=== PATIENT | female | born 1975 | race Caucasian/White ===

== ENCOUNTER → 2020-04-09 | Outpatient (CLI) | payer OTHER ==
[2020-04-09 12:11] LABS: HCT 43.8 % (34.0-46.0); HGB 14.5 gm/dL (11.4-16.0); MCH 31.7 pg (25.0-35.0); MCHC 33.1 g/dL (31.0-37.0); MCV 95.9 fL (80.0-100.0); Mean Platelet Volume 6.2; Platelet Count 269 k/uL (150-450); RBC 4.56 m/uL (3.80-5.40); RDW 11.8 % (11.5-15.5)
[2020-04-09 20:43] LABS: African American GFR (CKD) 103.2 (60.0-200.0); Albumin 4.7 g/dL (3.80-4.90); Albumin/Globulin Ratio 2.61 (1.60-3.17); Anion Gap 9.3 mmol/L (4.00-12.00); BUN/Creat Ratio 17.5 Ratio (12.00-20.00); Calcium 9.8 mg/dL (8.7-10.3); Carbon Dioxide 27.7 mmol/L (21.6-31.8); Chol/HDL Ratio 3.26; Globulin 1.8 g/dL (1.6-3.3); Potassium 4.4 mmol/L (3.5-5.5); Total Bilirubin 1.4 mg/dL (0.3-1.2); Total Protein 6.5 g/dL (6.2-8.2)
== END | disposition home or self-care (01) ==
LOC: LABWHC1 10:53
PROVIDERS: ATTEND Internal Medicine Clinical Cardiac Electrophysiology
DX: G47.33 Obstructive sleep apnea (adult) (pediatric) (principal); G80.9 Cerebral palsy, unspecified; I48.0 Paroxysmal atrial fibrillation; R06.02 Shortness of breath
CPT/HCPCS: 36415; 80053; 80061; 84443; 85027

== ENCOUNTER → 2020-04-16 | Outpatient (CLI) | payer OTHER ==
--- NOTE | 2020-04-16 16:41 | CONS ---
CONSULTATION DATE OF SERVICE: 04/16/2020 A 44-year-old lady who [facility] for possible obstructive sleep apnea-hypopnea syndrome. HISTORY OF PRESENT ILLNESS/SLEEP-WAKE EVALUATION: Patient usual sleep schedule from 11 p.m. until 7:30 a.m. basically 7 days a week. No problems with falling asleep, although she has TV in bedroom. She sleeps on the side position. According to the family, she snores and has episodes of gasping for air and episodes of stopped breathing during sleep. In the morning, patient wakes up tired, but usually does not take naps. [place] Sleepiness Scale significantly increased to 14. Positive for multiple episodes of atrial fibrillation. PAST SURGICAL HISTORY: None. MEDICATIONS: Flecainide in situation if patient has episodes of atrial fibrillation. SOCIAL HISTORY: Negative for smoking, alcohol consumption occasional. FAMILY HISTORY: Positive for sleep apnea by her father and during sleep by her father. REVIEW OF SYSTEMS: Snoring, sleepiness during the day. PHYSICAL EXAM: lady without distress, BP 126/74, HR 69, RR 15, height 5 foot, 5-1/2 inches, weight 162.8 pounds, temperature 98.0, oxygen saturation at room air 99%. OROPHARYNX: Low position of soft palate. Mallampati 3. NECK: 14-1/2 inches in circumference. LUNGS: Clear to percussion and to auscultation. Good air exchange. No wheezing or rhonchi. HEART: S1, S2 regular. No murmurs, gallops, or rubs. ABDOMEN: Soft and nontender. Bowel sounds are present. No organomegaly appreciated. EXTREMITIES: No clubbing or cyanosis. TUBE FITTER: Awake, alert, and oriented X3. Cranial nerves 2 to 7 intact. There is no fasciculation or atrophy. noted. No focal deficits observed. LUNGS: Clear to percussion and to auscultation. Good air exchange. No wheezing or rhonchi. HEART: My template. IMPRESSION: 1. Loud snoring, witnessed episodes of stopped breathing during sleep. Low position of soft palate, Mallampati 3, sleepiness. [place] Sleepiness Scale significantly increased to 14. Obstructive sleep apnea-hypopnea syndrome. 2. History of episodes of atrial fibrillation. 3. Sleepiness. Differential diagnosis may include hypersomnia also. PLAN: 1. Polysomnography for evaluation of patient's breathing during sleep. 2. CPAP/BiPAP titration if sleep study confirms obstructive sleep apnea-hypopnea syndrome. 3. Preferable position during sleep on the side. 4. No driving if patient feels any sleepiness. 5. I will see patient for follow up visit to explain results of testing and following plan. Thank you very much for referring this patient for consultation. Sincerely, Ronald King MD, PhD, FAASM Diplomat of [employer] [employer] [employer] [facility] [place] MMODL / [place]: [id number] /
== END | disposition home or self-care (01) ==
LOC: SLEEP 14:53
PROVIDERS: ATTEND Internal Medicine
DX: G47.33 Obstructive sleep apnea (adult) (pediatric) (principal); Z86.73 Personal history of transient ischemic attack (TIA), and cerebral infarction without residual deficits; Z87.898 Personal history of other specified conditions; Z99.89 Dependence on other enabling machines and devices; Z79.899 Other long term (current) drug therapy
CPT/HCPCS: 99211